=== PATIENT | female | born 1940 | race Caucasian/White ===

== ENCOUNTER 2018-11-27 07:41 | Emergency (ER) | payer MEDICARE ==
[~2018-11-27] VITALS: Ht 157.5 cm; Wt 72.6 kg
[2018-11-27] MEDS ORDERED: METHYLPREDNISOLONE SOD SUCC 125 MG/2ML VIAL IM ONE (08:15)
[2018-11-27] MEDS ORDERED: ACETAMINOPHEN 325 MG TAB PO ONE (08:15)
[2018-11-27] MEDS ORDERED: METHYLPREDNISOLONE SOD SUCC 125 MG/2ML VIAL ONE (08:23)
--- NOTE | 2018-11-27 09:10 | Diagnostic Imaging Report ---
EXAMINATION: WRIST 3VW LT - HOPD INDICATION: Pain COMPARISON: None FINDINGS: No acute fracture or dislocation. There is soft tissue swelling about the wrist. Sclerotic band and cortical irregularity involving the scaphoid likely represents old scaphoid fracture. Mild widening of the scapholunate interval. Degenerative changes involve the intercarpal joints, most notably at the lunocapitate joint where there is [id number]-[id number] contact. Severe degenerative changes also involve the first CMC joint where there is lisg-[id number] contact, subchondral cystic change, proximal first metacarpal subluxation and bulky osteophyte formation. There is diffuse osteopenia. IMPRESSION: Findings of old scaphoid fracture. Mild widening of scapholunate interval. 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 Signed by: Roc Parsons MD on 11/27/2018 9:07 AM
== END 2018-11-27 10:15 | disposition home or self-care (01) ==
LOC: FSED 07:41
DX: M25.532 Pain in left wrist (principal); I10 Essential (primary) hypertension
CPT/HCPCS: 73110; 99283; J2930